=== PATIENT | female | born 1940 | race Asian ===

== ENCOUNTER 2018-03-03 13:43 | Emergency (ER) | payer OTHER, MEDICARE ==
[2018-03-03 13:53] VITALS: BMI 29.9
[2018-03-03 14:41] VITALS: TEMP 98.7
--- NOTE | 2018-03-03 15:08 | PDOC ---
Attending Attestation - Resident Resident Name: Enmanuel Proctor - ED Attending Attestation I have performed the following: I have examined & evaluated the patient, The case was reviewed & discussed with the resident, I agree w/resident's findings & plan, Exceptions are as noted - HPI HPI: 03/03/18 15:07 77y hx jose f htn, htn, hl, breast ca presents with burn while she was cooking with hot oil. Spatula flipped and splashed oil on her dosral aspect of L forearm/wrist R, R side of face, exam: extremity: 2nd degree burn over radial aspect of L forarm/wrist (does impact lateral wrist ) as well dorasla aspect of right hand, does not affect knuckles. pt placed some bacitracin and allow over the area, complaining of mild pain . will give tylenol will hve pt fu with PMD and burn clnica at datil - Physicial Exam PE: 03/03/18 15:37 bryn rnad - Medical Decision Making 03/03/18 15:37 see above
[2018-03-03] MEDS ORDERED: ACETAMINOPHEN 325 MG TABLET (FP) PO ONE (15:09)
--- NOTE | 2018-03-03 15:09 | PDOC ---
History of Present Illness <Parminder Curran - Last Filed: 03/03/18 15:50> - History of Present Illness Initial Comments: The patient is a 77F w/ a history of HTN, T2DM who was cooking with hot oil when the spatula flipped off of the atkinson and resulted in the patient burning her BUE and R side of her face. 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 The patient denies involvement of her eyes, changes in vision, circumferential stover, or changes in sensation Denies recent illness, LEYVA, PMH: HTN, T2DM, HLD, Hypothyroidism PSH: Breast cancer s/p lumpectomy approx 40y ago SH: neg x3 03/03/18 14:58 <Enmanuel Proctor - Last Filed: 03/03/18 18:54> - General Chief Complaint: Burn Stated Complaint: BURN Time Seen by Provider: 03/03/18 14:11 Past History <Parminder Curran - Last Filed: 03/03/18 15:50> - Past Medical History Cancer: Yes (right breast) COPD: No Diabetes: Yes HTN: Yes Hypercholesterolemia: Yes Thyroid Disease: Yes - Suicide/Smoking/Psychosocial Hx Smoking History: Never smoked <Enmanuel Proctor - Last Filed: 03/03/18 18:54> - Past Medical History Allergies/Adverse Reactions: Allergies Allergy/AdvReac Type Severity Reaction Status Date / Time No Known Allergies Allergy Verified 03/03/18 13:54 Home Medications: Ambulatory Orders Amlodipine Besylate [Norvasc -] 5 mg PO DAILY 03/03/18 Atorvastatin Ca [Lipitor] 20 mg PO DAILY 03/03/18 Calcium Carbonate/Vitamin D3 [Calcium 600 + Vit D Tablet] 1 each PO DAILY Cholecalciferol (Vitamin D3) [Vitamin D3 -] 600 unit PO DAILY 03/03/18 Cinnamon Bark [Cinnamon] 1,000 mg PO DAILY 03/03/18 Cyanocobalamin (Vitamin B-12) [Vitamin B-12] 1,000 mcg PO DAILY 03/03/18 Fluticasone Prop 0.05% Nasal [Flonase -] 1 - 2 spray NS DAILY PRN 03/03/18 Hydrochlorothiazide [Hctz -] 12.5 mg PO DAILY 03/03/18 Levothyroxine Sodium [Levoxyl] 75 mcg PO DAILY 03/03/18 Metformin HCl [Metformin HCl ER] 1,000 mg PO DAILY 03/03/18 Valsartan 320 mg PO DAILY 03/03/18 Review of Systems - Review of Systems Able to Perform ROS?: Yes Comments:: GENERAL/CONSTITUTIONAL: No fever or chills. No weakness HEAD, EYES, EARS, NOSE AND THROAT: No change in vision. No ear pain or discharge. No sore throat CARDIOVASCULAR: No chest pain or shortness of breath RESPIRATORY: No cough, wheezing, or hemoptysis GASTROINTESTINAL: No nausea, vomiting, diarrhea or constipation GENITOURINARY: No dysuria, frequency, or change in urination MUSCULOSKELETAL: No joint or muscle swelling or pain. No neck or back pain SKIN: per HPI NEUROLOGIC: No headache, vertigo, loss of consciousness, or change in strength/ sensation ENDOCRINE: No increased thirst. No abnormal weight change HEMATOLOGIC/LYMPHATIC: No anemia, easy bleeding, or history of blood clots ALLERGIC/IMMUNOLOGIC: No hives or skin allergy 03/03/18 18:54 Is the patient limited Slovak proficient: No <Enmanuel Proctor - Last Filed: 03/03/18 18:54> *Physical Exam - Vital Signs Last Vital Signs Temp Pulse Resp BP Pulse Ox 98.7 F 112 H 28 H 158/59 L 96 03/03/18 14:30 03/03/18 14:30 03/03/18 14:30 03/03/18 13:51 03/03/18 14:30 <Parminder Curran - Last Filed: 03/03/18 15:50> - Vital Signs Last Vital Signs Temp Pulse Resp BP Pulse Ox 98.7 F 112 H 28 H 158/59 L 96 03/03/18 14:30 03/03/18 14:30 03/03/18 14:30 03/03/18 13:51 03/03/18 14:30 - Physical Exam Comments: GENERAL: Awake, alert, and fully oriented, in no acute distress EYES: PERRL, EOMI, sclera anicteric, conjunctiva clear ENT: Hearing grossly normal, nares patent, oropharynx clear without exudates NECK: Normal ROM, supple, no lymphadenopathy LUNGS: No distress, speaks full sentences, clear to auscultation bilaterally HEART:Regular rate and rhythm, normal S1 and S2, no murmurs appreciated, peripheral pulses normal and equal bilaterally ABDOMEN: Soft, nontender, normoactive bowel sounds. No guarding, no rebound. No masses NEUROLOGICAL: Cranial nerves II through XII grossly intact. Normal speech, normal gait, no focal sensorimotor deficits SKIN: 1-2% TBSA burn of R dorsal surface of hand w/o involvement of the digits or wrist, L distal dorsal-radial forearm and dorso-radial wrist. 1st degree burn to R forehead, and b/l dorasal forearms. No ocular involvement RUE: Inspection: 0.5% TBSA second degree burn to dorsal surface of hand w/o involvement of the digits or wrist. No tenderness, no obvious abnormalities, no open wounds. Compartments soft and compressible, pain within proportion, no pain to passive stretch Sensation: sensation present to light touch m/r/u n Motor: intact AIN/PIN/Ulnar in hand; 5/5 Wrist flex/ext; 5/5 Elbow flex/ext; 5/ 5 Shoulder ABd,Flex Vascular: 2+ radial pulse palpated, BCR all fingers <2 sec. LUE: Inspection: 1% TBSA second degree burn to distal dorsal-radial forearm and dorso -radial wrist. No open wounds. Compartments soft and compressible, pain within proportion, no pain to passive stretch Sensation: sensation present to light touch m/r/u n Motor: intact AIN/PIN/Ulnar in hand; 5/5 Wrist flex/ext; 5/5 Elbow flex/ext; 5/ 5 Shoulder ABd,Flex Vascular: 2+ radial pulse palpated, BCR all fingers <2 sec. 03/03/18 15:30 <Enmanuel Proctor - Last Filed: 03/03/18 18:54> ED Treatment Course - Medications Given in the ED: ED Medications Discontinued Medications Generic Name Dose Route Start Last Admin Trade Name Freq PRN Reason Stop Dose Admin Acetaminophen 975 mg 03/03/18 15:09 03/03/18 15:35 Tylenol - PO 03/03/18 15:10 975 mg ONCE ONE Administration <Parminder Curran - Last Filed: 03/03/18 15:50> *DC/Admit/Observation/Transfer <Parminder Curran - Last Filed: 03/03/18 15:50> - Discharge Dispostion Decision to Admit order: No <Enmanuel Proctor - Last Filed: 03/03/18 18:54> Diagnosis at time of Disposition: Burn (any degree) involving less than 10% of body surface - Discharge Dispostion Disposition: HOME Condition at time of disposition: Stable - Referrals Referrals: Denis Smith [Primary Care Provider] - [facility] [Other] - Call tomorrow - Patient Instructions Printed Discharge Instructions: How to Take Care of a Burn Additional Instructions: You were seen in the Emergency Room today for evaluation of approximately 1-2% TBSA second degree burn. Please review the handout provided at discharge. Please follow up with your primary care physician within the next 1-3 days. Return to the Emergency Department if you develop worsening pain, tightness in your hands, worsening redness, or decreased range of motion You may call Dr. Wise at [phone] (wound care) for evaluation. - Post Discharge Activity
[2018-03-03] MEDS ORDERED: ACETAMINOPHEN 325 MG TABLET (FP) ONE (15:34)
[2018-03-03 15:55] VITALS: BP 131/59; PULSE 74
== END 2018-03-03 15:55 | disposition home or self-care (01) ==
LOC: JER 13:43
DX: T23.261A Burn of second degree of back of right hand, initial encounter (principal); T22.212A Burn of second degree of left forearm, initial encounter; T23.272A Burn of second degree of left wrist, initial encounter; T20.16XA Burn of first degree of forehead and cheek, initial encounter; T31.0 Burns involving less than 10% of body surface; X10.2XXA Contact with fats and cooking oils, initial encounter; Y93.G1 Activity, food preparation and clean up; Y92.010 Kitchen of single-family (private) house as the place of occurrence of the external cause; Y99.8 Other external cause status; I10 Essential (primary) hypertension; E78.00 Pure hypercholesterolemia, unspecified; E03.9 Hypothyroidism, unspecified; E11.9 Type 2 diabetes mellitus without complications; Z79.84 Long term (current) use of oral hypoglycemic drugs; Z85.3 Personal history of malignant neoplasm of breast
CPT/HCPCS: 99282-25

== ENCOUNTER 2018-11-21 08:50 | Emergency (ER) | payer OTHER, MEDICARE ==
[2018-11-21 08:57] VITALS: BP 146/61; PULSE 80; TEMP 98.8; BMI 29.2
--- NOTE | 2018-11-21 09:26 | PDOC ---
History of Present Illness - General Chief Complaint: Injury Stated Complaint: FALL RT WRIST INJURY Time Seen by Provider: 11/21/18 09:00 History Source: Patient Exam Limitations: Clinical Condition - History of Present Illness Initial Comments: 11/21/18 09:44 Patient with no significant past medical history present with complaint of right wrist pain status post trip and fall on outstretched hand yesterday on right hand. Patient reported increased pain to back of right wrist which is worse with flexion of the wrist. Patient reports taking Aleve for pain. Denies numbness or tingling sensation. Denies decreased wrist movement or restricted wrist movement. Denies any other symptoms Past History - Past Medical History Allergies/Adverse Reactions: Allergies Allergy/AdvReac Type Severity Reaction Status Date / Time No Known Allergies Allergy Verified 03/03/18 13:54 Home Medications: Ambulatory Orders Amlodipine Besylate [Norvasc -] 5 mg PO DAILY 03/03/18 Atorvastatin Ca [Lipitor] 20 mg PO DAILY 03/03/18 Calcium Carbonate/Vitamin D3 [Calcium 600 + Vit D Tablet] 1 each PO DAILY Cholecalciferol (Vitamin D3) [Vitamin D3 -] 600 unit PO DAILY 03/03/18 Cyanocobalamin (Vitamin B-12) [Vitamin B-12] 1,000 mcg PO DAILY 03/03/18 Hydrochlorothiazide [Hctz -] 12.5 mg PO DAILY 03/03/18 Levothyroxine Sodium [Levoxyl] 75 mcg PO DAILY 03/03/18 metFORMIN HCL [Metformin HCl ER] 1,000 mg PO DAILY 03/03/18 Aspirin [Aspirin EC] 81 mg PO DAILY 11/21/18 Naproxen [Naprosyn -] 375 mg PO BID PRN #20 tablet 11/21/18 Cancer: Yes (right breast) COPD: No Diabetes: Yes HTN: Yes Hypercholesterolemia: Yes Thyroid Disease: Yes - Suicide/Smoking/Psychosocial Hx Smoking History: Never smoked Have you smoked in the past 12 months: No Information on smoking cessation initiated: No Hx Alcohol Use: No Drug/Substance Use Hx: No Review of Systems - Review of Systems Able to Perform ROS?: Yes Is the patient limited Cuban proficient: No Constitutional: No: Malaise, Weakness HEENTM: No: Symptoms Reported Respiratory: No: Symptoms reported Cardiac (ROS): No: Symptoms Reported Musculoskeletal: Yes: Symptoms Reported, See HPI, Joint Pain (right wrist), Muscle Pain Integumentary: No: Symptoms Reported, Bruising Neurological: No: Numbness, Paresthesia, Tingling All Other Systems: Reviewed and Negative *Physical Exam - Vital Signs Last Vital Signs Temp Pulse Resp BP Pulse Ox 98.8 F 80 20 146/61 99 11/21/18 08:53 11/21/18 08:53 11/21/18 08:53 11/21/18 08:53 11/21/18 08:53 - Physical Exam Comments: 11/21/18 09:25 GENERAL: Well developed, well nourished. Awake and alert in mild acute distress. CARDIOVASCULAR: Regular rate and rhythm. No murmurs, rubs, or gallops. PULMONARY: No evidence of respiratory distress. MUSCULOSKELETAL : mild tenderness to dorsal aspect of right hand over second to fourth metatarsals and medial aspect of right wrist. No visible deformity. No swelling to redness. No anatomical snuffbox tenderness. FROM of right wrist and hand SKIN: Warm and dry. Normal capillary refill. No bruising or ecchymosis. NEUROLOGICAL: Alert, awake, appropriate. No motor deficits in the lower extremities. Gait is normal without ataxia. PSYCHIATRIC: Cooperative. Good eye contact. Appropriate mood and affect. General Appearance: Yes: Nourished, Appropriately Dressed, Mild Distress ED Treatment Course - RADIOLOGY Radiology Studies Ordered: Category Date Time Status WRIST W/HAND-RIGHT* [RAD] Stat Radiology 11/21/18 09:00 Ordered Medical Decision Making - Medical Decision Making 11/21/18 09:45 Patient with no significant past medical history present with complaint of right wrist pain status post trip and fall on outstretched hand yesterday on right hand. Patient reported increased pain to back of right wrist which is worse with flexion of the wrist. Patient reports taking Aleve for pain. Denies numbness or tingling sensation. Denies decreased wrist movement or restricted wrist movement. Denies any other symptoms Exam significant for mild tenderness to dorsal aspect of right hand over second to fourth metatarsals and medial aspect of right wrist. No visible deformity. No swelling to redness. No anatomical snuffbox tenderness. X-ray of right wrist and hand shows no acute fracture or dislocation. Patient symptoms likely wrist sprain. Ibuprofen 600 mg by mouth ordered for pain. Right wrist and hand placed in a prefabricated wrist splint. Patient is stable for discharge with advised to do warm compresses and hand orthopedics follow-up as needed *DC/Admit/Observation/Transfer Diagnosis at time of Disposition: Injury of right wrist Qualifiers: Encounter type: initial encounter Qualified Code(s): S69.91XA - Unspecified injury of right wrist, hand and finger(s), initial encounter - Discharge Dispostion Condition at time of disposition: Stable Decision to Admit order: No - Prescriptions Prescriptions: Naproxen [Naprosyn -] 375 mg PO BID PRN #20 tablet PRN Reason: wrist pain - Referrals Referrals: Aries Guerrero MD [Staff Physician] - - Patient Instructions Printed Discharge Instructions: DI for Wrist Sprain Additional Instructions: Your wrist x-ray shows no acute fracture or dislocation. Your symptoms likely from wrist sprain. Take prescribed medication as needed for pain. Keep provide a wrist brace on for at least 4 days. Apply warm compresses to wrist 2-3 times a day as needed for pain and swelling. Follow-up referred had orthopedics if no improvement in 5 days. - Post Discharge Activity
[2018-11-21] MEDS ORDERED: IBUPROFEN 600 MG TABLET (FP) PO ONE ×2 (09:41→09:47)
== END 2018-11-21 09:52 | disposition home or self-care (01) ==
LOC: JERFT 08:50
PROC: 2W3CX1Z Immobilization of Right Lower Arm using Splint (ICD-10-PCS; principal; 2018-11-21)
DX: S63.591A Other specified sprain of right wrist, initial encounter (principal); W18.39XA Other fall on same level, initial encounter; Y93.89 Activity, other specified; Y92.89 Other specified places as the place of occurrence of the external cause; Y99.8 Other external cause status; I10 Essential (primary) hypertension; E78.00 Pure hypercholesterolemia, unspecified; E11.9 Type 2 diabetes mellitus without complications; Z79.84 Long term (current) use of oral hypoglycemic drugs; E07.9 Disorder of thyroid, unspecified
CPT/HCPCS: 73110-TC-RT-FY; 73130-TC-RT-FY; 99282-25